=== PATIENT | female | born 2000 | race Caucasian/White ===

== ENCOUNTER 2018-08-31 20:22 | Emergency (ER) | payer OTHER, SELFPAY ==
[2018-08-31] MEDS ORDERED: Sodium Chloride 0.9% 1,000 ML IV STA (21:29)
[2018-08-31 22:13] LABS: BASO % 0.2 % (0.0-2.0); EOS % 0.1 % (0.0-4.0); HEMOGLOBIN 11.7 g/dL (12.0-16.0); LYMPH # 0.9 K/uL (1.0-4.3); MEAN CELL VOLUME 85.3 fl (81.0-99.0); MEAN CORPUSCULAR HEMOGLOBIN 28.1 pg (27.0-31.0); MEAN CORPUSCULAR HGB CONC 32.9 g/dL (33.0-37.0); MONO # 0.7 K/uL (0.0-0.8); MONO % 4.8 % (0.0-10.0); NEUT # 13.5 K/uL (1.8-7.0); NEUT % 88.9 % (50.0-75.0); PLATELET COUNT 262 K/uL (130-400); RBC 4.15 Mil/uL (3.80-5.20); RED CELL DISTRIBUTION WIDTH 13.8 % (11.5-14.5); WHITE BLOOD COUNT 15.2 K/uL (4.8-10.8)
[2018-08-31 22:22] LABS: ALB/GLOB RATIO 1.4 (1.0-2.1); ALBUMIN 4.5 g/dL (3.5-5.0); ALT/SGPT 33 U/L (9-52); AST/SGOT 32 U/L (14-36); BLOOD UREA NITROGEN 14 mg/dl (7-17); CALCIUM 8.9 mg/dL (8.4-10.2); GFR NON-AFRICAN AMERICAN > 60
--- NOTE | 2018-08-31 22:31 | ED PDOC ---
HPI: Abdomen Time Seen by Provider: 08/31/18 21:05 Chief Complaint (Nursing): Abdominal Pain Chief Complaint (Provider): Abdominal Pain History Per: Patient History/Exam Limitations: no limitations Onset/Duration Of Symptoms: Days (x 1) Current Symptoms Are (Timing): Still Present Quality Of Discomfort: Cramping (severe) Associated Symptoms: Vomiting Alleviating Factors: None Additional Complaint(s): 18 year old female with a history of dysmenorrhea presents to the ED for evaluation of 1 day of severe abdominal cramping associated with the start of her period, diarrhea and three episodes of vomiting. Patient reports similar symptoms in the past, usually relieved by Midol and a heating pad. However, they persisted today, prompting ED visit. Offers no other complaints. PMD: none provided Past Medical History Reviewed: Historical Data Vital Signs: Last Vital Signs Temp 98.2 F 08/31/18 20:51 Pulse 77 08/31/18 20:51 Resp 16 08/31/18 20:51 BP 115/84 08/31/18 20:51 Pulse Ox 100 08/31/18 20:51 - Medical History PMH: No Chronic Diseases - Surgical History Surgical History: No Surg Hx - Family History Family History: States: Unknown Family Hx - Social History Current smoker - smoking cessation education provided: No Alcohol: None Drugs: Denies - Home Medications Home Medications: Ambulatory Orders Medication Instructions Recorded Dicyclomine [Bentyl] 20 mg PO Q12 PRN #20 tab 09/01/18 Naproxen [Naprosyn] 500 mg PO Q12 #14 tab 09/01/18 - Allergies Allergies/Adverse Reactions: Allergies Allergy/AdvReac Type Severity Reaction Status Date / Time No Known Allergies Allergy Verified 08/31/18 20:51 Review of Systems ROS Statement: Except As Marked, All Systems Reviewed And Found Negative Constitutional: Negative for: Fever, Chills Gastrointestinal: Positive for: Vomiting (x 3), Abdominal Pain (severe cramping). Negative for: Nausea, Diarrhea Physical Exam - Reviewed Nursing Documentation Reviewed: Yes Vital Signs Reviewed: Yes - Physical Exam Appears: Positive for: Non-toxic, No Acute Distress Head Exam: Positive for: ATRAUMATIC, NORMAL INSPECTION, NORMOCEPHALIC Skin: Positive for: Normal Color, Warm, Dry Eye Exam: Positive for: EOMI, Normal appearance, PERRL Neck: Positive for: Normal, Painless ROM, Supple Cardiovascular/Chest: Positive for: Regular Rate, Rhythm. Negative for: Murmur Respiratory: Positive for: Normal Breath Sounds. Negative for: Wheezing, Respiratory Distress Gastrointestinal/Abdominal: Positive for: Tenderness (diffuse lower abdominal). Negative for: Mass, Guarding, Rebound Back: Positive for: Normal Inspection. Negative for: L CVA Tenderness, R CVA Tenderness Extremity: Positive for: Normal ROM (x 4). Negative for: Deformity Neurological/Psych: Positive for: Awake, Alert, Normal Tone, Oriented (x 3). Negative for: Motor/Sensory Deficits - Laboratory Results Result Diagrams: 08/31/18 21:52 08/31/18 21:52 Lab Results: Total Bilirubin 0.4 mg/dl (0.2-1.3) 08/31/18 21:52 AST 32 U/L (14-36) 08/31/18 21:52 ALT 33 U/L (9-52) 08/31/18 21:52 Alkaline Phosphatase 91 U/L (38-126) 08/31/18 21:52 Total Protein 7.9 G/DL (6.3-8.2) 08/31/18 21:52 Albumin 4.5 g/dL (3.5-5.0) 08/31/18 21:52 Globulin 3.3 gm/dL (2.2-3.9) 08/31/18 21:52 Albumin/Globulin Ratio 1.4 (1.0-2.1) 08/31/18 21:52 - ECG O2 Sat by Pulse Oximetry: 100 (RA) Pulse Ox Interpretation: Normal Medical Decision Making Medical Decision Makin:29 Impression: 18 year old female with dysmenorrhea Initial Plan: --CBC --CMP --Urine dip --Urine preg --Toradol 30 mg IV --Zofran 4 mg IV --NS IV 1,000 mls --Pelvic/Transvag US --UA 22:45 Labs show no clinically significant abnormalities with the exception of mild leukocytosis. CT Abd Pelvis ordered. 00:04 US FINDINGS: ENDOMETRIUM: 1.1 cm in AP dimension. UTERUS/CERVIX: The uterus appears anteverted in position and normal in size measuring 9.1 x 5.5 x 6.6 cm in longitudinal, AP and transverse dimensions respectively. No uterine fibroid or other mass evident. RIGHT OVARY: Normal Doppler flow. No abnormal mass. LEFT OVARY: Normal Doppler flow. No abnormal mass. FREE FLUID: No free fluid. IMPRESSION: Unremarkable pelvic ultrasound. 00:05 CT Abd Pelvis FINDINGS: LUNG BASES: The lung bases appear clear. No pleural effusions are seen. LIVER: Unremarkable. GALLBLADDER AND BILE DUCTS: The gallbladder appears within normal limits. No radioopaque gallstones are seen. No biliary ductal dilatation is evident. PANCREAS: Unremarkable. SPLEEN: Unremarkable. ADRENAL GLANDS: Unremarkable. KIDNEYS, URETERS, AND BLADDER: The kidneys appear within normal limits. There is no hydronephrosis or hydroureter. No urinary calculi are seen. The urinary bladder appeared normal in size and configuration. STOMACH AND BOWEL: Unremarkable appearance of the stomach and bowel. No evidence of bowel obstruction. No evidence suggesting enteritis or colitis. APPENDIX: No evidence of acute appendicitis on CT examination. PERITONEUM: No free fluid. No free air. Multiple mesenteric lymph nodes are noted; with at least 3 demonstrating a short axis transverse measurement of 5.0 mm or greater compatible with mesenteric adenitis. LYMPH NODES: No lymphadenopathy is evident. REPRODUCTIVE: Unremarkable as visualized. VASCULATURE: No evidence of abdominal aortic aneurysm. BONES: No aggressive appearing osseous lesion. No acute osseous pathology evident. IMPRESSION: 1. Findings compatible with mesenteric adenitis. 00:32 Patient is stable for discharge with the diagnosis of dysmenorrhea. Scribe Attestation: Documented by Layla Bailey, acting as a scribe for Acosta Dacosta MD Provider Scribe Attestation: All medical record entries made by the Scribe were at my direction and personally dictated by me. I have reviewed the chart and agree that the record accurately reflects my personal performance of the history, physical exam, medical decision making, and the department course for this patient. I have also personally directed, reviewed, and agree with the discharge instructions and disposition. Disposition - Clinical Impression Clinical Impression: Dysmenorrhea, Mesenteric adenitis - Patient ED Disposition Is Patient to be Admitted: No - Disposition Referrals: [facility] [Outside] [facility] [Outside] Disposition: Routine/Home Disposition Time: 00:32 Condition: STABLE Prescriptions: Dicyclomine [Bentyl] 20 mg PO Q12 PRN #20 tab PRN Reason: abdominal pain/diarrhea Naproxen [Naprosyn] 500 mg PO Q12 #14 tab Instructions: Painful Periods, Mesenteric Lymphadenitis (DC) Forms: [employer] (Polish)
[2018-08-31 23:56] LABS: BANDS 4 % (0-2); LYMPHOCYTE 9 % (20-50); MONOCYTE 8 % (0-10); NEUTROPHIL 79 % (42-75); PLATELET ESTIMATE NORMAL (NORMAL); TOTAL CELLS COUNTED 100
[2018-09-01 00:35] VITALS: BP 110/61; PULSE 81; RESP 18; TEMP 98.9
--- NOTE | 2018-09-01 08:40 | CT ---
Date of service: 08/31/2018 PROCEDURE: CT Abdomen and Pelvis without intravenous contrast HISTORY: renal colic COMPARISON: Pelvis ultrasound 08/31/2018. TECHNIQUE: Technique. Contrast dose: Radiation dose: Total exam DLP = 308.63 mGy-cm. This CT exam was performed using one or more of the following dose reduction techniques: Automated exposure control, adjustment of the mA and/or kV according to patient size, and/or use of iterative reconstruction technique. FINDINGS: LOWER THORAX: Unremarkable. LIVER: Unremarkable. No gross lesion or ductal dilatation. GALLBLADDER AND BILE DUCTS: Unremarkable. PANCREAS: Unremarkable. No gross lesion or ductal dilatation. SPLEEN: Unremarkable. ADRENALS: Unremarkable. No mass. KIDNEYS AND URETERS: No radiodense urolithiasis, perinephric fluid collection or obstructive uropathy is appreciate bilaterally. The bilateral ureters appear normal caliber overall. No suspicious renal contour changes to suggest underlying mass. The lack of intravenous contrast limits evaluation of the renal parenchyma bilaterally. VASCULATURE: Unremarkable. No aortic aneurysm. No aortic atherosclerotic calcification or mural plaque present. BOWEL: The stomach is distended with retained food and fluid and is otherwise unremarkable appearing grossly. No bowel obstruction. No gross mural thickening. APPENDIX: Unremarkable. Normal appendix. PERITONEUM: Infrequent shotty lymph nodes are seen in the central mesentery and a solitary pericecal lymph nodes identified medially raising question of possible mesenteric adenitis. No free fluid. No free air. LYMPH NODES: Unremarkable. No enlarged lymph nodes. BLADDER: Urinary bladder is mildly distended but thin and smooth walled. No radiodense urolithiasis in the lumen or emphysematous changes. No definite contour abnormalities. REPRODUCTIVE: Fluid is identified within the endometrial cavity of uncertain origin. This is concordant with preliminary pelvic ultrasonography also performed 08/31/2018. No suspicious adnexal findings. BONES: No acute fracture. OTHER FINDINGS: None. IMPRESSION: Potential mesenteric adenitis though this is not definite. No radiodense urolithiasis, perinephric fluid collection or obstructive uropathy is appreciate bilaterally. The bilateral ureters appear normal caliber overall. No suspicious renal contour changes to suggest underlying mass. The lack of intravenous contrast limits evaluation of the renal parenchyma bilaterally. Fluid is identified within the endometrial cavity of uncertain origin. Please see separate pelvic ultrasonography evaluation also performed 08/31/2018. Discordant preliminary report from [facility] (fluid in the endometrial cavity in pelvis with pelvis ultrasonography 419), 09/01/2018, 12:05 a.m...
--- NOTE | 2018-09-01 08:48 | US ---
Date of service: 08/31/2018 HISTORY: pelvic pain COMPARISON: None available. TECHNIQUE: Transabdominal pelvic ultrasound was performed with longitudinal and transverse images submitted for interpretation. FINDINGS: UTERUS: Measures 9.1 x 5.5 x 6.6 cm. Uterus is mildly enlarged, anteverted with mildly heterogeneous but nonfocal myometrium appreciated. No fibroid or other mass lesion seen. ENDOMETRIUM: Measures 11.4 mm in diameter. Mildly inhomogeneous but predominantly hypoechoic fluid is seen in the endometrial cavity potentially reflecting hemorrhagic products given clinical history of active vaginal bleeding. Anterior endometrium may be less thickened than the posterior endometrium which would be somewhat unusual but this could be a function of hemorrhage as well. Follow-up transvaginal pelvic ultrasonography is recommended for better characterization of the endometrium and its contents. CERVIX: No cervical abnormality identified. RIGHT OVARY: Measures 3.0 x 2.5 x 2.4 cm. No solid mass. Normal flow. LEFT OVARY: Measures 2.8 x 2.6 x 2.6 cm. No solid mass. Normal flow. FREE FLUID: No significant free fluid noted. OTHER FINDINGS: None. IMPRESSION: Probable hemorrhagic products within the endometrial cavity with asymmetric thickening of the anterior and posterior endometrial stripes potentially a function of acute subacute hemorrhagic products though underlying lesion is not excluded, particularly posteriorly. The latter is not favored, however, follow-up transvaginal pelvic ultrasonography is advised. Unremarkable bilateral necks compartments. Discordant with [facility] preliminary report describing unremarkable pelvic ultrasound on September 01, 2018, 12:04 a.m.. Findings discussed with Dr. Hall with written down and read back verification 09/01/2018 8:43 a.m..
[2018-09-02 04:00] VITALS: O2SAT 100
== END 2018-09-01 00:40 | disposition home or self-care (01) ==
LOC: H.ER 20:22
DX: N94.6 Dysmenorrhea, unspecified (principal); I88.0 Nonspecific mesenteric lymphadenitis; D72.829 Elevated white blood cell count, unspecified
CPT/HCPCS: 74176; 76830; 76856; 80053; 81025; 85025; 96360; 99285; J1885; J2405; J7030

== ENCOUNTER 2018-09-30 07:07 | Emergency (ER) | payer OTHER ==
[2018-09-30 07:17] VITALS: BMI 25.0
--- NOTE | 2018-09-30 08:22 | ED PDOC ---
HPI: Female Pain Time Seen by Provider: 09/30/18 07:33 Chief Complaint (Nursing): Female Genitourinary Chief Complaint (Provider): Vaginal Bleeding History Per: Patient History/Exam Limitations: no limitations Onset/Duration Of Symptoms: Days Quality Of Discomfort: Cramping Additional Complaint(s): 18 year old female with no significant medical history presents to ED with vaginal bleeding x2 weeks. Patient reports of visiting here last month for evaluation of abdominal cramps and had an ultrasound performed that resulted normal. Patient states she had then thought to have started her period 2 weeks ago but states bleeding has not stopped since then. Patient also reports of experiencing heavy vaginal bleeding 2 days ago and had visited PMD yesterday who noted a large cervical mass and advised her to come to ER for possible removal. Patient states mass is large and foul smelling. Of note, patient reports of typically experiencing irregular menstruation but none for this long. Patient notes of [facility]. Otherwise, patient denies vomiting and fever. PMD: Henna Jansen Abnormal Vaginal Bleeding: Yes Past Medical History Reviewed: Historical Data, Nursing Documentation, Vital Signs Vital Signs: Last Vital Signs Temp 98.3 F 09/30/18 07:16 Pulse 87 09/30/18 07:16 Resp 16 09/30/18 07:16 BP 100/62 09/30/18 07:16 Pulse Ox 98 09/30/18 07:16 Primary Care Provider: Procedure,Nonphys - Medical History PMH: No Chronic Diseases - Surgical History Surgical History: No Surg Hx - Family History Family History: States: No Known Family Hx - Social History Current smoker - smoking cessation education provided: No Alcohol: None Drugs: Denies - Immunization History Hx Tetanus Toxoid Vaccination: Yes Hx Influenza Vaccination: No Hx Pneumococcal Vaccination: No - Home Medications Home Medications: Ambulatory Orders Medication Instructions Recorded No Known Home Med 09/30/18 - Allergies Allergies/Adverse Reactions: Allergies Allergy/AdvReac Type Severity Reaction Status Date / Time No Known Allergies Allergy Verified 08/31/18 20:51 Review of Systems ROS Statement: Except As Marked, All Systems Reviewed And Found Negative Constitutional: Negative for: Fever Gastrointestinal: Positive for: Abdominal Pain (cramping). Negative for: Vom iting Genitourinary Female: Positive for: Vaginal Bleeding Physical Exam - Reviewed Nursing Documentation Reviewed: Yes Vital Signs Reviewed: Yes - Physical Exam Appears: Positive for: Non-toxic, No Acute Distress Head Exam: Positive for: ATRAUMATIC, NORMOCEPHALIC Skin: Positive for: Normal Color, Warm, Dry Eye Exam: Positive for: EOMI, Normal appearance, PERRL Neck: Positive for: Normal, Painless ROM, Supple Cardiovascular/Chest: Positive for: Regular Rate, Rhythm. Negative for: Murmur Respiratory: Positive for: Normal Breath Sounds. Negative for: Respiratory Distress Gastrointestinal/Abdominal: Positive for: Normal Exam, Soft. Negative for: Tenderness Pelvic Exam: Positive for: External Exam Normal, Blood (cervical), Mass. Negati ve for: Active Bleeding Back: Positive for: Normal Inspection. Negative for: L CVA Tenderness, R CVA Tenderness, Vertebral Tenderness Extremity: Positive for: Normal ROM (upper and lower). 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 Negative for: Motor/Sensory Deficits - Laboratory Results Result Diagrams: 09/30/18 08:18 09/30/18 08:18 - ECG O2 Sat by Pulse Oximetry: 98 (RA) Pulse Ox Interpretation: Normal Medical Decision Making Medical Decision Making: Time: 0810 Initial Impression: vaginal bleeding DDx includes: polyp, cervical cancer, vaginal or uterine prolapse, dysfunctional vaginal bleeding, endometreal cancer Initial Plan: --Labs (BMP, CBC, Prothrombin) --BBK --U-preg, U-dip --US (pelvis/transvaginal) 1202 US RESULTS Date of service: 09/30/2018 HISTORY: Vaginal bleeding possible vaginal mass COMPARISON: Comparison made with prior pelvic ultrasound and CT scan of the abdomen pelvis both dated 08/31/2018. TECHNIQUE: Transabdominal and transvaginal sonographic evaluation of the pelvis performed. FINDINGS: UTERUS: Measures 10.0 x 5.6 x 6.0 cm. There is a masslike lesion in the lower uterine segment/cervical region which exhibits slight increased vascularity. This lesion measures approximately 6.0 x 6.3 x 5.3. ENDOMETRIUM: Measures 6.3 mm in diameter. Unremarkable. CERVIX: No cervical abnormality identified. RIGHT OVARY: Measures 2.8 x 2.9 x 1.7 cm. No solid mass. Normal flow. LEFT OVARY: Measures 2.4 x 2.2 x 1.1 cm. No solid mass. Normal flow. FREE FLUID: No significant free fluid noted. OTHER FINDINGS: None. IMPRESSION: Masslike lesion lower uterine segment/cervical region which exhibits slight increased vascularity. Recommend follow-up watch repair person consultation for further evaluation [id number] Spoke to BEE BREEDER on-call, Dr. Jurado regarding patient's case. He recommends follow up with Dr Sharma or clinic. If the patient is HD stable he recommends outpatient management and no criteria for admission. Patient is HD stable, no severe anemia, no significant bleeding on exam. Patient instructed to follow up with PCP and reserves clerk or return for severe bleeding. Scribe Attestation: Documented by Александр Navarro training under Rhonda Irwin, acting as a scribe for Mark Hall MD. Provider Scribe Attestation: All medical record entries made by the Scribe were at my direction and personally dictated by me. I have reviewed the chart and agree that the record accurately reflects my personal performance of the history, physical exam, medical decision making, and the department course for this patient. I have also personally directed, reviewed, and agree with the discharge instructions and disposition. Disposition - Clinical Impression Clinical Impression: Cervical mass - Patient ED Disposition Is Patient to be Admitted: No Doctor Will See Patient In The: Office Counseled Patient/Family Regarding: Studies Performed, Diagnosis, Need For Followup - Disposition Referrals: Sharon Sharma MD [Staff Provider] - [facility] [Outside] Disposition: Routine/Home Disposition Time: 12:18 Condition: GOOD Additional Instructions: PATRIZIA TUCKER, thank you for letting us take care of you today. Your provider was Mark Hall MD and you were treated for VAGINAL BLEEDING. The emergency medical care you received today was directed at your acute symptoms. If you were prescribed any medication, please fill it and take as directed. It may take several days for your symptoms to resolve. Return to the Emergency Department if your symptoms worsen, do not improve, or if you have any other problems. Please contact your doctor or call one of the physicians/clinics you have been referred to that are listed on the Patient Visit Information form that is included in your discharge packet. Bring any paperwork you were given at discharge with you along with any medications you are taking to your follow up visit. Our treatment cannot replace ongoing medical care by a primary care provider outside of the emergency department. Thank you for allowing the [facility] team to be part of your care today. If you had an X-Ray or CT scan: A Radiologist will review the ED reading if any change in treatment is needed we will contact you. If you had a blood, urine, or wound culture: It will take several days for the results, if any change in treatment is needed we will contact you. Instructions: Cervical Cancer (DC) Forms: [employer] (Mongolian)
[2018-09-30 08:39] LABS: BASO % 0.3 % (0.0-2.0); EOS # 0.3 K/uL (0.0-0.7); EOS % 3.5 % (0.0-4.0); HEMOGLOBIN 10.2 g/dL (12.0-16.0); LYMPH # 1.8 K/uL (1.0-4.3); LYMPH % 17.6 % (20.0-40.0); MEAN CELL VOLUME 85.6 fl (81.0-99.0); MEAN CORPUSCULAR HEMOGLOBIN 28.2 pg (27.0-31.0); MEAN CORPUSCULAR HGB CONC 32.9 g/dL (33.0-37.0); MEAN PLATELET VOLUME 9.1 fl (7.2-11.7); MONO # 0.8 K/uL (0.0-0.8); NEUT # 7.1 K/uL (1.8-7.0); NEUT % 70.6 % (50.0-75.0); RBC 3.62 Mil/uL (3.80-5.20); RED CELL DISTRIBUTION WIDTH 14.2 % (11.5-14.5)
[2018-09-30 08:45] LABS: PROTHROMBIN TIME 11.4 Seconds (9.8-13.1)
[2018-09-30 08:48] LABS: PARTIAL THROMBOPLASTIN TIME 31.1 Seconds (25.6-37.1)
[2018-09-30 09:09] LABS: BLOOD UREA NITROGEN 10 mg/dl (7-17); CALCIUM 8.3 mg/dL (8.4-10.2); GFR NON-AFRICAN AMERICAN > 60
--- NOTE | 2018-09-30 12:05 | US ---
Date of service: 09/30/2018 HISTORY: Vaginal bleeding possible vaginal mass COMPARISON: Comparison made with prior pelvic ultrasound and CT scan of the abdomen pelvis both dated 08/31/2018. TECHNIQUE: Transabdominal and transvaginal sonographic evaluation of the pelvis performed. FINDINGS: UTERUS: Measures 10.0 x 5.6 x 6.0 cm. There is a masslike lesion in the lower uterine segment/cervical region which exhibits slight increased vascularity. This lesion measures approximately 6.0 x 6.3 x 5.3. ENDOMETRIUM: Measures 6.3 mm in diameter. Unremarkable. CERVIX: No cervical abnormality identified. RIGHT OVARY: Measures 2.8 x 2.9 x 1.7 cm. No solid mass. Normal flow. LEFT OVARY: Measures 2.4 x 2.2 x 1.1 cm. No solid mass. Normal flow. FREE FLUID: No significant free fluid noted. OTHER FINDINGS: None. IMPRESSION: Masslike lesion lower uterine segment/cervical region which exhibits slight increased vascularity. Recommend follow-up chemistry lecturer consultation for further evaluation
[2018-09-30 14:27] VITALS: BP 106/63; PULSE 78; RESP 17; TEMP 98.4
[2018-09-30 14:36] VITALS: O2SAT 98
== END 2018-09-30 14:01 | disposition home or self-care (01) ==
LOC: H.ER 07:07
DX: N88.8 Other specified noninflammatory disorders of cervix uteri (principal)